=== PATIENT | female | born 1975 | race Caucasian/White ===

== ENCOUNTER → 2017-09-10 | Outpatient (CLI) | payer OTHER ==
[~2017-09-10] MED LIST: CEPH500 PO; LEVSOD50 PO; NAPR500 PO; Norco 5-325 Ta1 EACH PO; SULTRIDS PO; TRAM50 PO; TRIA80TC TOP
== END ==
LOC: LAB 11:16 → LAB SHORT 11:16
PROVIDERS: Registered Nurse Community Health
DX: Z12.4 Encounter for screening for malignant neoplasm of cervix (principal)
CPT/HCPCS: 87624; G0123

== ENCOUNTER → 2018-05-15 | Outpatient (CLI) | payer OTHER ==
[2018-05-17 01:10] LABS: CHLAMYDIA TRACHOMATIS, NAA Negative (Negative); NEISSERIA GONORRHOEAE, NAA Negative (Negative)
== END ==
LOC: LAB SHORT 11:22 → LAB 11:22
PROVIDERS: Registered Nurse Community Health
DX: Z11.3 Encounter for screening for infections with a predominantly sexual mode of transmission (principal)
CPT/HCPCS: 87491; 87591

== ENCOUNTER → 2018-10-10 | Outpatient (CLI) | payer OTHER ==
[~2018-10-10] MED LIST changes: +COQ1050 MG PO; +FISH OIL 1,0001 EAC1 PO; +FOLGARD TABLET1 EACH PO; +IBU800 MG PO; +LABE200 PO; +MAGSULP PO; +POTA8; +PRENATAL TABLE1 EAC2 PO; +PROBIOTIC1 EAC4 PO; +Percocet 5-3251 EACH PO
== END ==
LOC: LAB 13:30 → LAB SHORT 13:30
DX: Z34.92 Encounter for supervision of normal pregnancy, unspecified, second trimester (principal)
CPT/HCPCS: 87086

== ENCOUNTER → 2018-10-31 | Outpatient (CLI) | payer OTHER | LOC: LAB 11:21 → LAB SHORT 11:21 → LAB FUT 10-30 18:15 | PROVIDERS: Registered Nurse Community Health | DX: O09.513 Supervision of elderly primigravida, third trimester (principal); O99.810 Abnormal glucose complicating pregnancy; O26.00 Excessive weight gain in pregnancy, unspecified trimester | CPT/HCPCS: 81050; 84156 ==

== ENCOUNTER → 2018-11-06 | Outpatient (CLI) | payer OTHER | LOC: LAB SHORT 18:19 → LAB 18:19 | DX: Z34.93 Encounter for supervision of normal pregnancy, unspecified, third trimester (principal) | CPT/HCPCS: 87081; 87653 ==

== ENCOUNTER → 2018-11-20 | Outpatient (CLI) | payer OTHER ==
[2018-11-20 17:46] LABS: BASOPHILS ABSOLUTE AUTO 0.02 K/mm3 (0.00-0.23); BASOPHILS PERCENT AUTO 0 % (0-2); EOSINOPHILS ABSOLUTE AUTO 0.14 K/mm3 (0.00-0.68); EOSINOPHILS PERCENT AUTO 2 % (0-6); Hematocrit 40.3 % (33.0-51.0); Hemoglobin 12.5 g/dL (11.5-16.0); IMMATURE GRAN ABSOLUTE AUTO 0.04 K/mm3 (0.00-0.10); IMMATURE GRAN PERCENT AUTO 1 % (0-1); LYMPHOCYTES ABSOLUTE AUTO 1.36 K/mm3 (0.84-5.20); LYMPHOCYTES PERCENT AUTO 16 % (21-46); MONOCYTES ABSOLUTE AUTO 0.86 K/mm3 (0.16-1.47); MONOCYTES PERCENT AUTO 10 % (4-13); Mean Corpuscular HGB 28.5 pg (26.0-34.0); Mean Corpuscular Volume 92 fL (80-100); NEUTROPHILS ABSOLUTE AUTO 6.23 K/mm3 (1.96-9.15); NEUTROPHILS PERCENT AUTO 72 % (41-73); Platelet Count 159 K/mm3 (150-400); RDW Coefficient Variation 16.2 % (11.7-14.2); RDW Standard Deviation 55.3 fL (35.1-46.3); Red Blood Cell Count 4.39 M/mm3 (3.80-5.20); White Blood Cell Count 8.65 K/mm3 (4.00-11.30)
[2018-11-20 18:23] LABS: Alanine Aminotransfer (ALT/SGP 13 U/L (12-78); Albumin, Blood 2.4 g/dL (3.4-5.0); Albumin/Globulin Ratio 0.6 (0.8-1.8); Alk Phos 93 U/L (50-136); Anion Gap 5 mmol/L (6-16); Aspartate Aminotrans (AST/SGOT 17 U/L (12-37); Bilirubin, Total 0.4 mg/dL (0.1-1.0); Blood Urea Nitrogen 10 mg/dL (8-24); Bun/Creatinine Ratio 20.4 (12.0-20.0); CO2, Blood 25 mmol/L (21-32); Calcium, Blood 8.8 mg/dL (8.5-10.1); Chloride, Blood 107 mmol/L (98-108); Creatinine, Blood 0.49 mg/dL (0.40-1.00); Glomerular Filtration Rate >60 (60-); Glucose, Blood 67 mg/dL (70-99); Potassium, Blood 3.9 mmol/L (3.5-5.5); Sodium, Blood 137 mmol/L (136-145); Total Protein, Blood 6.4 g/dL (6.4-8.2)
== END ==
LOC: LAB 16:35 → LAB SHORT 16:35
PROVIDERS: Registered Nurse Community Health
DX: R03.0 Elevated blood-pressure reading, without diagnosis of hypertension (principal)
CPT/HCPCS: 80053; 85025

== ENCOUNTER 2018-11-28 13:44 | Inpatient (IN) | payer OTHER ==
[~2018-11-28] VITALS: Ht 165.1 cm; Wt 170.0 kg
[2018-11-28 11:11] LABS: BASOPHILS ABSOLUTE AUTO 0.03 K/mm3 (0.00-0.23); BASOPHILS PERCENT AUTO 0 % (0-2); EOSINOPHILS ABSOLUTE AUTO 0.19 K/mm3 (0.00-0.68); EOSINOPHILS PERCENT AUTO 2 % (0-6); Hematocrit 38.4 % (33.0-51.0); Hemoglobin 12.4 g/dL (11.5-16.0); IMMATURE GRAN ABSOLUTE AUTO 0.04 K/mm3 (0.00-0.10); IMMATURE GRAN PERCENT AUTO 1 % (0-1); LYMPHOCYTES ABSOLUTE AUTO 1.43 K/mm3 (0.84-5.20); LYMPHOCYTES PERCENT AUTO 17 % (21-46); MONOCYTES ABSOLUTE AUTO 0.58 K/mm3 (0.16-1.47); MONOCYTES PERCENT AUTO 7 % (4-13); Mean Corpuscular HGB 28.5 pg (26.0-34.0); Mean Corpuscular HGB Conc 32.3 g/dL (31.5-36.5); Mean Platelet Volume 12.5 fL (9.1-12.4); NEUTROPHILS ABSOLUTE AUTO 6.37 K/mm3 (1.96-9.15); NEUTROPHILS PERCENT AUTO 74 % (41-73); Platelet Count 159 K/mm3 (150-400); RDW Coefficient Variation 16.1 % (11.7-14.2); Red Blood Cell Count 4.35 M/mm3 (3.80-5.20); White Blood Cell Count 8.64 K/mm3 (4.00-11.30)
[2018-11-28 11:18] LABS: Mean Corpuscular Volume 88 fL (80-100)
[2018-11-28 12:05] LABS: Alanine Aminotransfer (ALT/SGP 19 U/L (12-78); Albumin, Blood 2.3 g/dL (3.4-5.0); Albumin/Globulin Ratio 0.6 (0.8-1.8); Alk Phos 92 U/L (50-136); Anion Gap 8 mmol/L (6-16); Aspartate Aminotrans (AST/SGOT 17 U/L (12-37); Bilirubin, Total 0.4 mg/dL (0.1-1.0); Blood Urea Nitrogen 10 mg/dL (8-24); Bun/Creatinine Ratio 16.4 (12.0-20.0); CO2, Blood 23 mmol/L (21-32); Calcium, Blood 8.8 mg/dL (8.5-10.1); Chloride, Blood 106 mmol/L (98-108); Creatinine, Blood 0.61 mg/dL (0.40-1.00); Globulin, Blood 3.9 g/dL (2.2-4.0); Glomerular Filtration Rate >60 (60-); Glucose, Blood 194 mg/dL (70-99); Potassium, Blood 3.9 mmol/L (3.5-5.5); Sodium, Blood 137 mmol/L (136-145); Total Protein, Blood 6.2 g/dL (6.4-8.2)
[~2018-11-28 13:44] MED LIST changes: -IBU800 MG PO; -LABE200 PO; -Percocet 5-3251 EACH PO
--- NOTE | 2018-11-29 10:27 | NUR ---
CBP WITH IV START 93
--- NOTE | 2018-11-29 10:28 | NUR ---
Timoteo WHEELER RN DISCUSSED OR PLAN OF CARE AND POTENTIAL PLAN OF CARE FOR NB
--- NOTE | 2018-11-29 10:29 | NUR ---
PREOPERATIVE WIPES GIVEN TO PT
--- NOTE | 2018-11-29 10:31 | NUR ---
CBC DRAWN, CGB 93
[2018-11-29 10:34] LABS: BASOPHILS ABSOLUTE AUTO 0.02 K/mm3 (0.00-0.23); BASOPHILS PERCENT AUTO 0 % (0-2); EOSINOPHILS ABSOLUTE AUTO 0.16 K/mm3 (0.00-0.68); EOSINOPHILS PERCENT AUTO 2 % (0-6); Hematocrit 40.8 % (33.0-51.0); Hemoglobin 13.1 g/dL (11.5-16.0); IMMATURE GRAN ABSOLUTE AUTO 0.06 K/mm3 (0.00-0.10); IMMATURE GRAN PERCENT AUTO 1 % (0-1); LYMPHOCYTES ABSOLUTE AUTO 1.35 K/mm3 (0.84-5.20); LYMPHOCYTES PERCENT AUTO 14 % (21-46); MONOCYTES ABSOLUTE AUTO 0.78 K/mm3 (0.16-1.47); MONOCYTES PERCENT AUTO 8 % (4-13); Mean Corpuscular HGB 28.4 pg (26.0-34.0); Mean Corpuscular HGB Conc 32.1 g/dL (31.5-36.5); Mean Corpuscular Volume 88 fL (80-100); Mean Platelet Volume 12.3 fL (9.1-12.4); NEUTROPHILS ABSOLUTE AUTO 7.09 K/mm3 (1.96-9.15); NEUTROPHILS PERCENT AUTO 75 % (41-73); Platelet Count 160 K/mm3 (150-400); RDW Coefficient Variation 16.2 % (11.7-14.2); RDW Standard Deviation 52.9 fL (35.1-46.3); Red Blood Cell Count 4.62 M/mm3 (3.80-5.20); White Blood Cell Count 9.46 K/mm3 (4.00-11.30)
--- NOTE | 2018-11-29 10:34 | NUR ---
FHT 130, + FM.
--- NOTE | 2018-11-29 11:49 | NUR ---
MARYLU SIEGEL TO SCAN LR THAT IS HANGING. IT WAS D-5, STOPPED RESTARTED WITH LR. WILL NOTIFY CNJossie. CBG 108.
--- NOTE | 2018-11-29 12:55 | NUR ---
AMBULATED TO OR.
[2018-11-29 13:41] LABS: PCO2 Cord - Arterial 69 mmHg (40-50); PO2 Cord - Arterial 14.4 mmHg (16-20); pH Cord - Arterial 7.29 (7.28-7.35)
[2018-11-29 13:42] LABS: PCO2 Cord - Venous 56.6 mmHg (40-50); PO2 Cord - Venous 21.6 mmHg (28-32); pH Umbilical Cord - Venous 7.34 (7.26-7.35)
--- NOTE | 2018-11-29 15:15 | NUR ---
11/29/18 1515 Richelle Hanson 1328 DELIVERY VIABLE MALE WEIGHT 4915GM 10# 130Z, HEAD AND CHEST 15.25 INCHES, LENGTH 20.5 INCHES, PLACENT 1330GM, APGARS 8/9, UMBILICAL CORD BLOOD COLLECTED AND GIVEN TO Timoteo WHEELER RN, UMBILICAL CORD SEGMENT COLLECTED AND GIVEN TO RT FOR CORD GASES.
--- NOTE | 2018-11-29 19:30 | NUR ---
LABATELOL IV GIVEN AND BP WAS 155/74 10 MIN AFTER DOSE. CALLED AND UPDATED OPAL RO CNM WHO GAVE ORDERS TO CONTINUE CLOSE MONITORING OF BLOOD PRESSURE. EVERY 10 MIN FOR 1 HOUR THEN IF BP <160/<105, CHECK BP EVERY 15 MIN FOR 1 HOUR. THEN IF BP REMAINS BELOW SET PARAMETER, EVERY 30 MIN FOR 1 HOUR, THEN EVERY HOUR FOR 2 HOURS.
[2018-11-30 06:11] LABS: BASOPHILS ABSOLUTE AUTO 0.03 K/mm3 (0.00-0.23); BASOPHILS PERCENT AUTO 0 % (0-2); EOSINOPHILS PERCENT AUTO 1 % (0-6); Hematocrit 32.6 % (33.0-51.0); Hemoglobin 10.3 g/dL (11.5-16.0); IMMATURE GRAN ABSOLUTE AUTO 0.06 K/mm3 (0.00-0.10); IMMATURE GRAN PERCENT AUTO 1 % (0-1); LYMPHOCYTES ABSOLUTE AUTO 1.54 K/mm3 (0.84-5.20); LYMPHOCYTES PERCENT AUTO 13 % (21-46); MONOCYTES ABSOLUTE AUTO 1.05 K/mm3 (0.16-1.47); MONOCYTES PERCENT AUTO 9 % (4-13); Mean Corpuscular HGB 28.1 pg (26.0-34.0); Mean Corpuscular HGB Conc 31.6 g/dL (31.5-36.5); Mean Corpuscular Volume 89 fL (80-100); Mean Platelet Volume 12.6 fL (9.1-12.4); NEUTROPHILS PERCENT AUTO 76 % (41-73); Platelet Count 134 K/mm3 (150-400); RDW Coefficient Variation 16.4 % (11.7-14.2); RDW Standard Deviation 53.5 fL (35.1-46.3); Red Blood Cell Count 3.66 M/mm3 (3.80-5.20); White Blood Cell Count 11.48 K/mm3 (4.00-11.30)
--- NOTE | 2018-11-30 23:00 | NUR ---
PT ENCOURAGED TO GET UP AND MOVE AROUND AND CHANGE POSITON IN BED T/O DAY. PT INSTRUCTED TO USE IS DUE TO LACK MOVEMENT.
--- NOTE | 2018-12-01 08:35 | NUR ---
Trash and dirty linen removed from room. Fresh icewater given.
[2018-12-01] MEDS ORDERED: IBU800 MG PO (12:29)
[2018-12-01] MEDS ORDERED: LABE200 PO (12:30)
[2018-12-01] MEDS ORDERED: Percocet 5-3251 EACH PO (12:30)
--- NOTE | 2018-12-01 16:10 | NUR ---
Printed d/c instructions reviewed w/pt and . Denies questions at this time. No acute changes t/o shift. ID bands matched w/nb. Pt d/c'd home ambulatory to care of .
== END 2018-12-01 16:06 | disposition home or self-care (01) | DRG 788 ==
LOC: BC 11-29 07:30
PROVIDERS: ADMIT Obstetrics & Gynecology
PROC: 10D00Z1 Extraction of Products of Conception, Low, Open Approach (ICD-10-PCS; principal; 2018-11-29 12:30)
DX: O40.3XX0 Polyhydramnios, third trimester, not applicable or unspecified (principal); O99.214 Obesity complicating childbirth; E66.01 Morbid (severe) obesity due to excess calories; O36.63X0 Maternal care for excessive fetal growth, third trimester, not applicable or unspecified; O24.429 Gestational diabetes mellitus in childbirth, unspecified control; O13.4 Gestational [pregnancy-induced] hypertension without significant proteinuria, complicating childbirth; Z3A.39 39 weeks gestation of pregnancy; Z37.0 Single live birth; O99.824 Streptococcus B carrier state complicating childbirth; Z88.7 Allergy status to serum and vaccine
CPT/HCPCS: 36415; 80053; 82803; 82947; 85025; 86850; 86900; 86901; A9270; J0690; J1885; J2270; J2405; J2590; J2765; J3010; J7120

== ENCOUNTER → 2019-06-09 | Outpatient (CLI) | payer OTHER ==
[~2019-06-09] MED LIST changes: +IBU800 MG PO; +LABE200 PO; +Percocet 5-3251 EACH PO
[2019-06-12 02:09] LABS: CHLAMYDIA TRACHOMATIS, NAA Negative (Negative); NEISSERIA GONORRHOEAE, NAA Negative (Negative)
== END ==
LOC: LAB SHORT 17:47 → LAB 17:47
PROVIDERS: Registered Nurse Community Health
DX: Z34.91 Encounter for supervision of normal pregnancy, unspecified, first trimester (principal)
CPT/HCPCS: 87491; 87591

== ENCOUNTER → 2019-12-23 | Outpatient (CLI) | payer OTHER ==
[~2019-12-23] MED LIST changes: +GLYB2.5 PO; +IBUP800 PO; +LABE100 PO
[2019-12-23 19:55] LABS: BASOPHILS ABSOLUTE AUTO 0.02 K/mm3 (0.00-0.23); BASOPHILS PERCENT AUTO 0 % (0-2); EOSINOPHILS PERCENT AUTO 1 % (0-6); Hematocrit 42.2 % (33.0-51.0); Hemoglobin 13.2 g/dL (11.5-16.0); IMMATURE GRAN ABSOLUTE AUTO 0.03 K/mm3 (0.00-0.10); IMMATURE GRAN PERCENT AUTO 0 % (0-1); LYMPHOCYTES ABSOLUTE AUTO 1.37 K/mm3 (0.84-5.20); LYMPHOCYTES PERCENT AUTO 16 % (21-46); MONOCYTES ABSOLUTE AUTO 0.76 K/mm3 (0.16-1.47); MONOCYTES PERCENT AUTO 9 % (4-13); Mean Corpuscular HGB 28.6 pg (26.0-34.0); Mean Corpuscular HGB Conc 31.3 g/dL (31.5-36.5); Mean Corpuscular Volume 92 fL (80-100); Mean Platelet Volume 12.7 fL (9.1-12.4); NEUTROPHILS ABSOLUTE AUTO 6.14 K/mm3 (1.96-9.15); NEUTROPHILS PERCENT AUTO 73 % (41-73); Platelet Count 179 K/mm3 (150-400); RDW Standard Deviation 50.3 fL (35.1-46.3); Red Blood Cell Count 4.61 M/mm3 (3.80-5.20); White Blood Cell Count 8.42 K/mm3 (4.00-11.30)
[2019-12-23 20:13] LABS: Percent Saturation 25.8 % (15.0-50.0)
[2019-12-23 20:18] LABS: Alanine Aminotransfer (ALT/SGP 16 U/L (12-78); Albumin, Blood 2.3 g/dL (3.4-5.0); Albumin/Globulin Ratio 0.6 (0.8-1.8); Alk Phos 109 U/L (50-136); Anion Gap 7 mmol/L (6-16); Aspartate Aminotrans (AST/SGOT 25 U/L (12-37); Bilirubin, Total 0.7 mg/dL (0.1-1.0); Blood Urea Nitrogen 7 mg/dL (8-24); Bun/Creatinine Ratio 13.9 (12.0-20.0); CO2, Blood 24 mmol/L (21-32); Calcium, Blood 9.1 mg/dL (8.5-10.1); Chloride, Blood 108 mmol/L (98-108); Creatinine, Blood 0.51 mg/dL (0.40-1.00); Free Thyroxine 0.92 ng/dL (0.70-1.60); Globulin, Blood 4.1 g/dL (2.2-4.0); Glomerular Filtration Rate >60 (60-); Glucose, Blood 73 mg/dL (70-99); Potassium, Blood 4.3 mmol/L (3.5-5.5); Sodium, Blood 139 mmol/L (136-145); Total Protein, Blood 6.4 g/dL (6.4-8.2)
[2019-12-23 20:23] LABS: Triiodothyronine, Free 2.27 pg/mL (2.18-3.98)
== END | disposition home or self-care (01) ==
LOC: LAB 19:15 → LAB SHORT 19:15
PROVIDERS: Family Medicine
DX: E03.9 Hypothyroidism, unspecified (principal); D50.9 Iron deficiency anemia, unspecified
CPT/HCPCS: 80053; 82728; 83540; 83550; 84439; 84443; 84481; 85025

== ENCOUNTER 2019-12-31 16:04 | Inpatient (IN) | payer OTHER ==
[~2019-12-31] VITALS: Ht 167.6 cm; Wt 168.0 kg
[~2019-12-31 16:04] MED LIST changes: -GLYB2.5 PO; -IBUP800 PO; -LABE100 PO
[2019-12-31] MEDS ORDERED: LABE100 PO (18:36)
[2019-12-31] MEDS ORDERED: GLYB2.5 PO (18:38)
[2020-01-01 10:28] LABS: BASOPHILS ABSOLUTE AUTO 0.02 K/mm3 (0.00-0.23); BASOPHILS PERCENT AUTO 0 % (0-2); EOSINOPHILS ABSOLUTE AUTO 0.14 K/mm3 (0.00-0.68); EOSINOPHILS PERCENT AUTO 2 % (0-6); Hematocrit 39.3 % (33.0-51.0); Hemoglobin 12.7 g/dL (11.5-16.0); IMMATURE GRAN ABSOLUTE AUTO 0.04 K/mm3 (0.00-0.10); IMMATURE GRAN PERCENT AUTO 0 % (0-1); LYMPHOCYTES ABSOLUTE AUTO 1.52 K/mm3 (0.84-5.20); LYMPHOCYTES PERCENT AUTO 17 % (21-46); MONOCYTES ABSOLUTE AUTO 0.86 K/mm3 (0.16-1.47); MONOCYTES PERCENT AUTO 10 % (4-13); Mean Corpuscular HGB 29.3 pg (26.0-34.0); Mean Corpuscular HGB Conc 32.3 g/dL (31.5-36.5); Mean Corpuscular Volume 91 fL (80-100); Mean Platelet Volume 12.4 fL (9.1-12.4); NEUTROPHILS ABSOLUTE AUTO 6.47 K/mm3 (1.96-9.15); NEUTROPHILS PERCENT AUTO 72 % (41-73); Platelet Count 151 K/mm3 (150-400); RDW Coefficient Variation 14.6 % (11.7-14.2); RDW Standard Deviation 48.5 fL (35.1-46.3); Red Blood Cell Count 4.34 M/mm3 (3.80-5.20); White Blood Cell Count 9.05 K/mm3 (4.00-11.30)
[2020-01-01 14:22] LABS: PCO2 Cord - Arterial 65.2 mmHg (40-50); pH Cord - Arterial 7.28 (7.28-7.35)
[2020-01-01 14:24] LABS: PCO2 Cord - Venous 52.4 mmHg (40-50); PO2 Cord - Venous 21.3 mmHg (28-32); pH Umbilical Cord - Venous 7.34 (7.26-7.35)
[2020-01-01 14:25] LABS: PO2 Cord - Arterial < 13 mmHg (16-20)
--- NOTE | 2020-01-01 14:31 | NUR ---
01/01/20 1431 Richelle Hanson 1407 DELIVERY VIABLE FEMALE INFANT, WEIGHT 4395GM 9# 11OZ, HEAD 14.5 INCHES, CHEST 14 INCHES, LENGTH 21.75 INCHES, APGARS 9/9, PLACENTA 1015GM, UMBILICAL CORD SEGMENT SENT WITH RT FOR CORD GASES, UMBILICAL CORD BLOOD COLLECTED GIVEN TO RN FOR TYPE AND RH
[2020-01-02 06:03] LABS: BASOPHILS ABSOLUTE AUTO 0.03 K/mm3 (0.00-0.23); BASOPHILS PERCENT AUTO 0 % (0-2); EOSINOPHILS ABSOLUTE AUTO 0.13 K/mm3 (0.00-0.68); EOSINOPHILS PERCENT AUTO 1 % (0-6); Hematocrit 35.7 % (33.0-51.0); Hemoglobin 11.3 g/dL (11.5-16.0); IMMATURE GRAN ABSOLUTE AUTO 0.04 K/mm3 (0.00-0.10); IMMATURE GRAN PERCENT AUTO 0 % (0-1); LYMPHOCYTES ABSOLUTE AUTO 1.07 K/mm3 (0.84-5.20); LYMPHOCYTES PERCENT AUTO 10 % (21-46); MONOCYTES ABSOLUTE AUTO 0.93 K/mm3 (0.16-1.47); MONOCYTES PERCENT AUTO 8 % (4-13); Mean Corpuscular HGB 29.1 pg (26.0-34.0); Mean Corpuscular HGB Conc 31.7 g/dL (31.5-36.5); Mean Corpuscular Volume 92 fL (80-100); Mean Platelet Volume 12.8 fL (9.1-12.4); NEUTROPHILS ABSOLUTE AUTO 8.92 K/mm3 (1.96-9.15); NEUTROPHILS PERCENT AUTO 80 % (41-73); Platelet Count 131 K/mm3 (150-400); RDW Coefficient Variation 14.8 % (11.7-14.2); Red Blood Cell Count 3.88 M/mm3 (3.80-5.20); White Blood Cell Count 11.12 K/mm3 (4.00-11.30)
--- NOTE | 2020-01-02 11:45 | NUR ---
UP TO SHOWER, PP VOID #1. LINEN CHANGED. NEW BINDER GIVEN. NEW GOWN
--- NOTE | 2020-01-02 14:00 | NUR ---
PT AMBULATE WITH TO NURSERY WITH FOR 24 HOUR CARE
--- NOTE | 2020-01-02 16:31 | NUR ---
RN ROUNDED TO HELP W/ . PT REPORTS THAT IS GOING WELL, STATES NB JUST FED WELL. INSTRUCTED PT ON CORRECT POSITIONING, LATCHING, EARLY FEEDING QUES, FREQUENCY OF FEEDS, AND SUPPLY/DEMAND OF BREASTMILK. MOM LOVING W/ NB, DENIES ANY FURTHER QUESTIONS OR CONCERNS. FURTHER HELP W/ OFFERED IF PT DESIRES WHILE IN HOSPITAL OR AFTER DISCHARGE.
--- NOTE | 2020-01-02 17:47 | NUR ---
REPORT TO BROOKRN
[2020-01-03] MEDS ORDERED: Percocet 5-3251 EACH PO (11:47)
[2020-01-03] MEDS ORDERED: IBUP800 PO (11:48)
--- NOTE | 2020-01-03 13:30 | NUR ---
Printed d/c instructions and teaching reviewed w/pt. Questions answered to her satisfaction. Denies other needs or concerns at this time. Will d/c home when pt calls.
--- NOTE | 2020-01-03 14:45 | NUR ---
No acute changes this shift. Pt d/c'd home ambulatory to care of .
== END 2020-01-03 14:45 | disposition home or self-care (01) | DRG 787 ==
LOC: BC 01-01 07:30
PROVIDERS: ADMIT Obstetrics & Gynecology
PROC: 10D00Z1 Extraction of Products of Conception, Low, Open Approach (ICD-10-PCS; principal; 2020-01-01 12:45)
DX: O24.425 Gestational diabetes mellitus in childbirth, controlled by oral hypoglycemic drugs (principal); O10.92 Unspecified pre-existing hypertension complicating childbirth; O11.4 Pre-existing hypertension with pre-eclampsia, complicating childbirth; O99.284 Endocrine, nutritional and metabolic diseases complicating childbirth; E03.9 Hypothyroidism, unspecified; O34.211 Maternal care for low transverse scar from previous cesarean delivery; O36.63X0 Maternal care for excessive fetal growth, third trimester, not applicable or unspecified; O99.214 Obesity complicating childbirth; E66.01 Morbid (severe) obesity due to excess calories; Z3A.38 38 weeks gestation of pregnancy; Z37.0 Single live birth; O34.13 Maternal care for benign tumor of corpus uteri, third trimester; D25.2 Subserosal leiomyoma of uterus
CPT/HCPCS: 36415; 82803; 82947; 85025; 86850; 86900; 86901; A9270; A9270-GY; J0690; J1885; J2370; J2405; J2590; J2765; J3010; J7120; Q2038

== ENCOUNTER 2023-01-14 18:05 | Emergency (ER) | payer OTHER ==
[~2023-01-14] VITALS: Ht 165.1 cm; Wt 154.2 kg
[~2023-01-14 18:05] MED LIST changes: +GLYB2.5 PO; +IBUP800 PO; +LABE100 PO
[2023-01-14 18:13] VITALS: BP 176/93
[2023-01-14] MEDS ORDERED: KETOROLAC TROMET5 ML TOP (18:36)
[2023-01-14] MEDS ORDERED: Ciprofloxacin2.5 ML LEFTEYE (18:36)
== END 2023-01-14 18:55 | disposition home or self-care (01) ==
LOC: ER 18:05
DX: S05.02XA Injury of conjunctiva and corneal abrasion without foreign body, left eye, initial encounter (principal); Z88.6 Allergy status to analgesic agent; Z88.7 Allergy status to serum and vaccine; Z91.048 Other nonmedicinal substance allergy status; Z91.040 Latex allergy status; Z79.890 Hormone replacement therapy; Z79.899 Other long term (current) drug therapy; W50.0XXA Accidental hit or strike by another person, initial encounter
CPT/HCPCS: 99283; A9270